=== PATIENT | male | born 1965 | race Caucasian/White ===

== ENCOUNTER → 2022-12-07 | Outpatient (CLI) | payer MEDICAID ==
[2022-12-07 14:45] LABS: Basophils # (A) 0.04 X 10*3/uL (0.00-0.10); Basophils % (A) 0.8 %; Eosinophils # (A) 0.06 X 10*3/uL (0.04-0.35); Eosinophils % (A) 1.2 %; HGB 16.4 g/dL (13.0-17.0); Lymphocytes # (A) 1.14 X 10*3/uL (0.90-5.00); Lymphocytes % (A) 22.8 %; MCH 28.9 pg (27.0-32.0); MCHC 32.2 g/dL (32.0-37.0); MCV 89.8 fL (80.0-97.0); Mean Platelet Volume 10.3 fL (9.5-12.2); Monocytes # (A) 0.49 X 10*3/uL (0.20-1.00); Monocytes % (A) 9.8 %; NRBC Per 100 WBC 0 /100 WBCS (0.0-0.0); Neutrophils # (A) 3.21 X 10*3/uL (1.80-7.70); Neutrophils % (A) 64.4 %; Platelet Count 182 X 10*3/uL (140-440); RBC 5.68 X 10*6/uL (4.40-5.60); RDW 12.8 % (11.5-14.5); WBC 4.99 X 10*3/uL (4.50-10.00)
[2022-12-07 15:38] LABS: ALT 37 U/L (10-49); AST 32 U/L (14-35); African American GFR (CKD) 121.8 (60.0-200.0); Albumin 4.3 g/dL (3.8-4.9); Albumin/Globulin Ratio 1.68 (1.60-3.17); Alkaline Phosphatase 117 U/L (41-126); BUN/Creat Ratio 15.95 Ratio (12.00-20.00); Blood Urea Nitrogen 10.7 mg/dL (9.0-27.0); Carbon Dioxide 23.8 mmol/L (20.0-27.5); Chloride 105 mmol/L (96-109); Chol/HDL Ratio 2.14 Ratio; Globulin 2.5 g/dL (1.6-3.3); Glucose 135 mg/dL (70-110); LDL Cholesterol,Calculated 37.4 mg/dL (0.0-131.0); Non-African American GFR(CKD) 105.1 (60.0-200.0); Sodium 142 mmol/L (135-145); Total Protein 6.8 g/dL (6.2-8.2); VLDL Calculation 14.94 mg/dL (5.00-40.00)
== END | disposition home or self-care (01) ==
LOC: LABWHC1 08:44
PROVIDERS: ATTEND Family Medicine
DX: I10 Essential (primary) hypertension (principal); E11.65 Type 2 diabetes mellitus with hyperglycemia; K21.9 Gastro-esophageal reflux disease without esophagitis; E78.5 Hyperlipidemia, unspecified
CPT/HCPCS: 36415; 80053; 80061; 82607; 83036; 83735; 85025

== ENCOUNTER → 2023-11-11 | Outpatient (CLI) | payer MEDICAID ==
[2023-11-11 13:11] LABS: HCT 53.3 % (39.6-50.0); HGB 17.4 g/dL (13.0-17.0); MCH 28.9 pg (27.0-32.0); MCHC 32.6 g/dL (32.0-37.0); MCV 88.5 FL (80.0-97.0); NRBC Per 100 WBC 0 X 10*3/uL (0.00-0.01); Platelet Count 209 X 10*3/uL (140-440); RBC 6.02 X 10*6/uL (4.40-5.60); RDW 12.7 % (11.5-14.5); WBC 4.73 X 10*3/uL (4.50-10.00)
[2023-11-11 13:46] LABS: ALT 30 U/L (10-49); AST 30 U/L (14-35); Albumin 4.6 g/dL (3.8-4.9); Albumin/Globulin Ratio 1.77 Ratio (1.60-3.17); Alkaline Phosphatase 138 U/L (41-126); BUN/Creat Ratio 13.75 Ratio (12.00-20.00); Calcium 9.7 mg/dL (8.7-10.3); Carbon Dioxide 23.7 mmol/L (21.6-31.8); Chloride 104 mmol/L (96-109); Chol/HDL Ratio 3.54 Ratio; Globulin 2.6 g/dL (1.6-3.3); Glucose 223 mg/dL (70-110); LDL Cholesterol,Calculated 102.8 mg/dL (0.0-131.0); Magnesium 2.2 mg/dL (1.5-2.4); PSA Annual Screen 0.908 ng/mL (0.000-4.000); Potassium 4.5 mmol/L (3.5-5.5); Sodium 142 mmol/L (135-145); Total Bilirubin 0.7 mg/dL (0.3-1.2); Total Protein 7.2 g/dL (6.2-8.2)
== END | disposition home or self-care (01) ==
LOC: LABWHC1 08:03
PROVIDERS: ATTEND Family Medicine
DX: Z00.00 Encounter for general adult medical examination without abnormal findings (principal); Z12.5 Encounter for screening for malignant neoplasm of prostate; E11.65 Type 2 diabetes mellitus with hyperglycemia; K21.00 Gastro-esophageal reflux disease with esophagitis, without bleeding
CPT/HCPCS: 80061; 80053; 82607; 83735; 85027; 83036; 36415; G0103

== ENCOUNTER → 2024-01-13 | Outpatient (CLI) | payer MEDICAID ==
[2024-01-13 12:55] LABS: % Iron Saturation 29.3 (15.00-50.00)
== END | disposition home or self-care (01) ==
LOC: LABWHC1 07:19
PROVIDERS: ATTEND Psychiatry & Neurology Neurology
DX: R25.1 Tremor, unspecified (principal)
CPT/HCPCS: 36415; 82525; 82728; 83540; 83550; 84466

== ENCOUNTER 2024-07-30 05:09 | Inpatient (IN) | payer OTHER, MEDICAID ==
[2024-07-30 05:14] VITALS: TEMP 98.6
[2024-07-30] MEDS: NITROGLYCERIN SL TABS 0.4 MG TAB SUBLINGUAL STA (05:34)
[2024-07-30] MEDS: MORPHINE SULFATE 4 MG/ML SYRINGE IV STA (05:35)
[2024-07-30 05:37] LABS: Basophils % (A) 1 %; Eosinophils # (A) 0.2 k/uL (0-0.7); Eosinophils % (A) 2 %; HCT 35.8 % (39.0-53.0); HGB 11.7 gm/dL (13.0-17.5); Lymphocytes # (A) 0.9 k/uL (1.0-4.8); Lymphocytes % (A) 12 %; MCH 29.7 pg (25.0-35.0); MCHC 32.7 g/dL (31.0-37.0); MCV 90.9 fL (80.0-100.0); Mean Platelet Volume 7.8; Monocytes # (A) 0.6 k/uL (0-1.0); Monocytes % (A) 8 %; Neutrophils # (A) 5.6 k/uL (1.3-7.7); Neutrophils % (A) 75 %; Platelet Count 175 k/uL (150-450); RBC 3.93 m/uL (4.30-5.90); RDW 13.1 % (11.5-15.5); WBC 7.4 k/uL (3.8-10.6)
[2024-07-30] MEDS: SODIUM CHLORIDE 0.9% 500 ML 500 ML IV STA (05:37)
--- NOTE | 2024-07-30 05:40 | ED ---
General Adult HPI - General Chief complaint: Chest Pain Stated complaint: Possible STEMI Time Seen by Provider: 07/30/24 05:16 Source: patient, EMS Mode of arrival: EMS Limitations: no limitations - History of Present Illness Initial comments: Patient is a 59-year-old gentleman the past medical history of CAD status post CABG earlier this week, last Monday, at [facility]. Discharged yesterday. Pt states that at 4 AM this morning he began experiencing right sided chest pressure. He denies associated shortness of breath, diaphoresis, nausea or vomiting. Received ASA and SL nitro from EMS with slight improvement in pain. - Related Data Allergies Allergy/AdvReac Type Severity Reaction Status Date / Time No Known Allergies Allergy Verified 07/30/24 05:14 Review of Systems ROS Statement: Those systems with pertinent positive or pertinent negative responses have been documented in the HPI. ROS Other: All systems not noted in ROS Statement are negative. Past Medical History Additional Past Medical History / Comment(s): Quad CABG 2024 History of Any Multi-Drug Resistant Organisms: None Reported Past Psychological History: No Psychological Hx Reported Smoking Status: Former smoker Past Alcohol Use History: Rare Past Drug Use History: None Reported General Exam - General Exam Comments Initial Comments: PE: CONSTITUTIONAL: No apparent distress, ill-appearing SKIN: Cool dry, no jaundice, hives or petechiae. Well-healing postsurgical scar across the sternum without discharge or exudates EYES: Pupils are equally round, extraocular movements intact without nystagmus, clear conjunctiva, non-icteric sclera HENT: Normocephalic, atraumatic, moist mucus membranes, oropharynx clear without exudates NECK: , Full range of motion, normal appearance PULMONARY: Scant wheezes in the bilateral lower lung stevenson, no rhonchi or rales no design center consultant muscle use normal excursion, no stridor CARDIOVASCULAR: Regular rate, rhythm, normal S1 and S2. No appreciated murmurs, rubs or gallops. Strong radial pulses with intact distal perfusion. No lower extremity edema GASTROINTESTINAL: Soft, active bowel sounds throughout, non-tender, non- distended, no palpable masses, no rebound or guarding. No hepatosplenomegaly MUSCULOSKELETAL: Extremities have no gross deformity, no edema, redness, or swelling. No calf swelling NEUROLOGIC:_a/o x 3, GCS 15, normal mentation and speech. Moves all extremities x 4 without motor or sensory deficit PSYCHIATRIC:_normal mood and affect, thought process is clear and linear Limitations: no limitations Course Vital Signs 07/30/24 07/30/24 07/30/24 05:09 05:17 05:47 Temperature 98.6 F Pulse Rate 96 91 86 Respiratory 18 18 16 Rate Blood Pressure 112/67 125/69 125/72 O2 Sat by Pulse 92 L 94 L 99 Oximetry 07/30/24 07/30/24 06:08 06:30 Temperature Pulse Rate 87 82 Respiratory 16 18 Rate Blood Pressure 124/70 O2 Sat by Pulse 100 100 Oximetry - Reevaluation(s) Reevaluation #1: Patient endorsed return of pain. Repeat EKG showed new ST elevations lead III and aVF, ST depressions in leads V1, II and III have since resolved, there is new ST depression about 1 mm in lead I 07/30/24 06:09 Reevaluation #2: Case discussed with Dr. White, STEMI alert, solder making laborer has been activated 07/30/24 06:18 EKG Findings - EKG Comments: EKG Findings:: EKG #1, sinus rhythm rate 94 bpm DC interval 260 ms QRS duration 129 ms QT/QTc 370/422 ms, normal axis, artifact is present throughout limiting interpretation however there is ST depression in leads V1 2 mm depression V2, 1 mm depression V3, no reciprocal elevations or reciprocal changes. Repeat EKG performed to assess for dynamic changes, repeat EKG shows changes from original EKG, no worsening ST depressions, no new ST elevations 1.[address] depression V2, questionable 1 mm depression V3, no reciprocal changes no STEMI. Repeat EKG done at 534, no new ST elevations, appears improved from initial EKG, [address] depression V2, questionable half millimeter [address] depression V3, no reciprocal elevations or reciprocal changes no STEMI. EKG #4, performed at 6:06 AM, sinus rhythm with first-degree AV block, rate 86 bpm DC interval 211 ms QT/QTc 395/438 ms, normal axis, ST elevation 2 mm lead III, [address] elevation in aVF, ST depressions in V1 through V3 have since resolved, questionable [address] depression in lead I, STEMI Medical Decision Making - Medical Decision Making Was pt. sent in by a medical professional or institution (, PA, GUNNER'S MATE G, urgent care, hospital, or prison...) When possible be specific @ -[No] Did you speak to anyone other than the patient for history (EMS, parent, family, police, friend...)? What history was obtained from this source @ -[No] Did you review nursing and triage notes (agree or disagree)? Why? @ -[I reviewed nursing and triage notes] Were old charts reviewed (outside hosp., previous admission, EMS record, old EKG, old radiological studies, urgent care reports/EKG's, prison records)? Report findings @ -[Medical records reviewed], I reviewed discharge summary provided by patient's , and medical records visible on her phone, shows that patient was treated for an NSTEMI with CABG, discharged yesterday Differential Diagnosis (chest pain, altered mental status, abdominal pain women, abdominal pain men, vaginal bleeding, weakness, fever, dyspnea, syncope, headache, dizziness, GI bleed, back pain, seizure, CVA, palpatations, mental health, musculoskeletal)? @Differential Chest Pain: Stable Angina, Unstable Angina, STEMI, NSTEMI pericarditis, pleurisy, chostochondirits, Pneumothorax, Musculoskeletal, Esophageal Spasm GERD, Cholecystitis, Pancreatitis, Zoster, this is not meant to be an all-inclusive list. EKG interpreted by me (3pts min.). @ -[As above] X-rays interpreted by me (1pt min.). @ -Cardiomegaly, bilateral pulmonary edema, small left pleural effusion CT interpreted by me (1pt min.). @ -[None done] U/S interpreted by me (1pt. min.). @ -[None done] What testing was considered but not performed or refused? (CT, X-rays, U/S, labs)? Why? @ -[None] What meds were considered but not given or refused? Why? @ -[None] Did you discuss the management of the patient with other professionals (pr ofessionals i.e. , PA, GUNNER'[employer] MATE G, lab, RT, psych nurse, director social, medical front desk coordinator, teacher, licensed mortgage loan officer, immigration case worker)? Give summary @Case discussed with Dr. White, cardiology, due to STEMI on EKG, solder making laborer activated, pt to go for cardiac cath Was smoking cessation discussed for >3mins.? @ -[No] Was critical care preformed (if so, how long)? @Yes, 35 minutes spent gathering hx from pt, , ordering and interpreting labs and imaging, frequent reassessments, discussion with consultants Were there social determinants of health that impacted care today? How? (Homelessness, low income, unemployed, alcoholism, drug addiction, transportation, low edu. Level, literacy, decrease access to med. care, detention, rehab)? @ -[No] Was there de-escalation of care discussed even if they declined (Discuss DNR or withdrawal of care, Hospice)? @ -[No] What co-morbidities impacted this encounter? (DM, HTN, Smoking, COPD, CAD, Cancer, CVA, ARF, Chemo, Hep., AIDS, mental health diagnosis, sleep apnea, morbid obesity)? @ CAD Was patient admitted / discharged? Hospital course, mention meds given and route, prescriptions, significant lab abnormalities, going to OR and other pertinent info. @ Admission to [facility], ICU- Pt is a 59 y/o gentleman hx recent CABG done at [facility], discharged yesterday, presenting today for right sided 5/10 chest pain. On my assessment pt is ill appearing but in NAD, at bedside. Reviewed initial EKG, showed some ST depressions but no elevations. Morphine, additional SL nitro, cardiac labs and CXR ordered. Serial EKGs performed x3 without findings consistent with STEMI. Discussed this with pt and and anticipated admission for further monitoring and testing and pt's requested pt be transferred to [facility] for further care so that pt could be n ear his CT surgeon and electrical sign servicer. [facility] was contacted by Conditioning Coach and was told that pt would likely be waiting in our ED for "days" waiting on a bed to become available. I discussed this w/ pts who requested Dr. Willis or Dr. Barillas be contacted. We reached out to [facility] and I had an extensive conversation with the main transfer center that I would like to consult whomever was carbon coater machine operator for Dr. Willis and was transferred to the creping machine operator who said they would call me back after attempting to page that team. While I was on the phone again with [facility] transfer center, as I was being informed once again that pt would likely not have a bed available for him for a number of days and I tried to explain that I was trying to contact the patient's specialists, patient began havingreturn of chest pain. Repeat EKG showed new ST elevations in lead III and aVF and 1 mm depression lead I, STEMI alert was activated. I discussed this with pt and and that, due to difficulty getting through to pt's specialists and having no accepting physician for pt at [facility] and now concern for active STEMI warrantnig emergent transfer to solder making laborer, I would not recommend awaiting to attempt transfer to [facility], as it could lead to a significant delay in reperfusion therapy for the pt. Pt and understanding of this. Case discussed with Dr. White who will meet pt in solder making laborer. Pt transferred to solder making laborer in guarded condition. Of note, Radha RN, was able to get in touch with Dr. Hewitt, cardiology at [facility] after pt was transferred to brine room laborer. He is familiar with patient and will reach out to Dr. White regarding plans for pt post cardiac cath. Admission orders placed for ICU for pt post cardiac cath. Undiagnosed new problem with uncertain prognosis? @ -[No] Drug Therapy requiring intensive monitoring for toxicity (Heparin, Nitro, Insulin, Cardizem)? @ -[No] Were any procedures done? @ -[No] Diagnosis/symptom? STEMI Acute, or Chronic, or Acute on Chronic? @Acute Uncomplicated (without systemic symptoms) or Complicated (systemic symptoms)? @complicated Side effects of treatment? @ -[No] Exacerbation, Progression, or Severe Exacerbation? @ -[No] Poses a threat to life or bodily function? How? (Chest pain, [place], [place], pneumonia, PE, COPD, DKA, ARF, appy, cholecystitis, CVA, Diverticulitis, Homicidal, Suicidal, threat to staff... and all critical care pts) @ Yes, could lead to cardiac arrest and - Lab Data Result diagrams: 07/30/24 05:38 07/30/24 05:38 Lab Results 07/30/24 07/30/24 07/30/24 Range/Units 05:38 05:38 05:38 WBC 7.4 (3.8-10.6) k/uL RBC 3.93 L (4.30-5.90) m/uL Hgb 11.7 L (13.0-17.5) gm/dL Hct 35.8 L (39.0-53.0) % MCV 90.9 (80.0-100.0) fL MCH 29.7 (25.0-35.0) pg MCHC 32.7 (31.0-37.0) g/dL RDW 13.1 (11.5-15.5) % Plt Count 175 (150-450) k/uL MPV 7.8 Neutrophils % 75 % Lymphocytes % 12 % Monocytes % 8 % Eosinophils % 2 % Basophils % 1 % Neutrophils # 5.6 (1.3-7.7) k/uL Lymphocytes # 0.9 L (1.0-4.8) k/uL Monocytes # 0.6 (0-1.0) k/uL Eosinophils # 0.2 (0-0.7) k/uL Basophils # 0.0 (0-0.2) k/uL PT 11.6 (10.0-12.5) sec INR 1.1 (<1.2) APTT 23.4 (22.0-30.0) sec Sodium 132 L (137-145) mmol/L Potassium 4.6 (3.5-5.1) mmol/L Chloride 96 L (98-107) mmol/L Carbon Dioxide 28 (22-30) mmol/L Anion Gap 8 mmol/L BUN 14 (9-20) mg/dL Creatinine 0.67 (0.66-1.25) mg/dL Est GFR (CKD-EPI)AfAm >90 (>60 ml/min/1.73 sqM) Est GFR (CKD-EPI)NonAf >90 (>60 ml/min/1.73 sqM) Glucose 249 H (74-99) mg/dL Calcium 8.6 (8.4-10.2) mg/dL Magnesium 2.0 (1.6-2.3) mg/dL Total Bilirubin 1.3 (0.2-1.3) mg/dL AST 37 (17-59) U/L ALT 22 (4-49) U/L Alkaline Phosphatase 113 (38-126) U/L Troponin I (0.000-0.034) ng/mL NT-Pro-B Natriuret Pep 663 pg/mL Total Protein 6.2 L (6.3-8.2) g/dL Albumin 3.1 L (3.5-5.0) g/dL Lipase 164 (23-300) U/L 07/30/24 Range/Units 05:38 WBC (3.8-10.6) k/uL RBC (4.30-5.90) m/uL Hgb (13.0-17.5) gm/dL Hct (39.0-53.0) % MCV (80.0-100.0) fL MCH (25.0-35.0) pg MCHC (31.0-37.0) g/dL RDW (11.5-15.5) % Plt Count (150-450) k/uL MPV Neutrophils % % Lymphocytes % % Monocytes % % Eosinophils % % Basophils % % Neutrophils # (1.3-7.7) k/uL Lymphocytes # (1.0-4.8) k/uL Monocytes # (0-1.0) k/uL Eosinophils # (0-0.7) k/uL Basophils # (0-0.2) k/uL PT (10.0-12.5) sec INR (<1.2) APTT (22.0-30.0) sec Sodium (137-145) mmol/L Potassium (3.5-5.1) mmol/L Chloride (98-107) mmol/L Carbon Dioxide (22-30) mmol/L Anion Gap mmol/L BUN (9-20) mg/dL Creatinine (0.66-1.25) mg/dL Est GFR (CKD-EPI)AfAm (>60 ml/min/1.73 sqM) Est GFR (CKD-EPI)NonAf (>60 ml/min/1.73 sqM) Glucose (74-99) mg/dL Calcium (8.4-10.2) mg/dL Magnesium (1.6-2.3) mg/dL Total Bilirubin (0.2-1.3) mg/dL AST (17-59) U/L ALT (4-49) U/L Alkaline Phosphatase (38-126) U/L Troponin I 0.631 H* (0.000-0.034) ng/mL NT-Pro-B Natriuret Pep pg/mL Total Protein (6.3-8.2) g/dL Albumin (3.5-5.0) g/dL Lipase (23-300) U/L Disposition Clinical Impression: ST elevation myocardial infarction (STEMI) Disposition: ADMITTED IP TO THIS HOSP Condition: Stable
[2024-07-30] MEDS: ONDANSETRON 4 MG/2 ML VIAL IVP STA ×2 (05:41→06:22)
--- NOTE | 2024-07-30 05:58 | XR ---
EXAM: XR Chest, 1 View CLINICAL HISTORY: R. Chest pain, recent CABG TECHNIQUE: Frontal view of the chest. COMPARISON: No relevant prior studies available. FINDINGS: Lungs: Moderate amount of airspace opacities throughout both lungs. Pleural space: Cannot rule out small left pleural effusion.. Heart: Cardiomegaly. Mediastinum: Sternal wires and mediastinal clips. Bones/joints: No acute findings IMPRESSION: Moderate pulmonary edema versus pneumonia
[2024-07-30 06:01] LABS: INR 1.1 (<1.2); Partial Thromboplastin Time 23.4 sec (22.0-30.0); Prothrombin Time 11.6 sec (10.0-12.5)
[2024-07-30 06:09] VITALS: BP 124/70
[2024-07-30] MEDS: HEPARIN SOD,PORK IN 0.45% NACL 25,000 UNIT in 0.45% NACL 1 250ML.BAG IV SCH (06:17)
[2024-07-30] MEDS: HEPARIN SODIUM 1,000 UN/ML (10ML VL) IV ONE (06:18)
[2024-07-30] MEDS: NITROGLYCERIN OINT 1 INCH/GM PACKET TOPICAL STA (06:19)
[2024-07-30] MEDS: MORPHINE SULFATE 4 MG/ML SYRINGE IVP STA (06:19)
[2024-07-30 06:23] LABS: ALT 22 U/L (4-49); African American GFR (CKD) >90 (>60 ml/min/1.73 sqM); Albumin 3.1 g/dL (3.5-5.0); Anion Gap 8 mmol/L; Blood Urea Nitrogen 14 mg/dL (9-20); Calcium 8.6 mg/dL (8.4-10.2); Carbon Dioxide 28 mmol/L (22-30); Chloride 96 mmol/L (98-107); Glucose 249 mg/dL (74-99); Lipase 164 U/L (23-300); Non-African American GFR(CKD) >90 (>60 ml/min/1.73 sqM); Sodium 132 mmol/L (137-145); Total Bilirubin 1.3 mg/dL (0.2-1.3); Total Protein 6.2 g/dL (6.3-8.2)
[2024-07-30 06:28] LABS: AST 37 U/L (17-59); Alkaline Phosphatase 113 U/L (38-126); Potassium 4.6 mmol/L (3.5-5.1)
[2024-07-30 06:31] LABS: NT-Pro-B-Type Natriuretic Pept 663 pg/mL
[2024-07-30] MEDS ORDERED: NALOXONE 0.4 MG/ML 1 ML VIAL IV PRN (06:37)
[2024-07-30] MEDS: LIDOCAINE 1% INJ 10MG/ML (20 ML MDV) SQ ONE (06:50)
[2024-07-30 06:53] VITALS: PULSE 82; RESP 18
[2024-07-30] MEDS: MIDAZOLAM 2 MG/2 ML VIAL IVP ONE (07:00)
[2024-07-30] MEDS: MORPHINE SULFATE 4 MG/ML SYRINGE IVP ONE (07:00)
[2024-07-30] MEDS: PHENYLEPHRINE 10 MG/ML VIAL IV ONE (07:03)
[2024-07-30] MEDS: FUROSEMIDE 10 MG/ML 4 ML VIAL IV ONE (07:12)
[2024-07-30] MEDS: SODIUM CHLORIDE 0.9% 1,000 ML IV ONE (07:58)
[2024-07-30] MEDS: HEPARIN SODIUM,PORCINE 10,000 UNIT in SODIUM CHLORIDE 0.9% 1,000 ML IRRIGATION ONE (07:58)
[2024-07-30] MEDS: HEPARIN SODIUM,PORCINE (1 ML) 2,500 UNIT in SODIUM CHLORIDE 0.9% 250 ML IRRIGATION ONE (07:59)
[2024-07-30] MEDS ORDERED: SODIUM CHLORIDE 0.9% 250 ML BAG ONE (08:00)
[2024-07-30] MEDS ORDERED: NOREPINEPHRINE 1 MG/ML 4 ML VIAL IV ONE (08:00)
[2024-07-30] MEDS ORDERED: EPINEPHrine 4 MG in DEXTROSE 5% IN WATER 250 ML IV SCH (08:30)
[2024-07-30] MEDS ORDERED: DEXTROSE 5% IN WATER 1,000 ML with SODIUM BICARB (1 MEQ/ML) 150 ML IV SCH (08:30)
[2024-07-30] MEDS: IOPAMIDOL-370 100ML BTL INJ ONE (08:40)
[2024-07-30 09:32] LABS: ABG PCO2 33 mmHg (35-45); ABG PH 7.38 (7.35-7.45); ABG PO2 54 mmHg (83-108); Allen Test Performed? no
[2024-07-30 09:33] LABS: ABG Base Excess -5.2 mmol/L; ABG HCO3 19 mmol/L (21-25)
--- NOTE | 2024-07-30 09:34 | P.PCN ---
Date of Procedure: 07/30/24 Operative Findings: Cardiac catheterization and percutaneous coronary intervention Performing physician Phi Soriano MD Procedure performed Selective right and left coronary angiogram FRYE to LAD angiogram and SVG to diagonal angiogram and SVG to OM angiogram and SVG to RCA angiogram Left heart catheterization and right heart catheterization Successful placement of Impella CP in the left ventricle Successful placement of temporary pacemaker in the right ventricle An angioplasty of the mid right coronary artery Selective right common femoral artery angiogram and ultrasound-guided access of the right common femoral artery Indication This is a 59-year-old gentleman with known severe triple-vessel CAD who underwent CABG last week at [facility]. He was discharged according to the family in stable medical condition. He presented to the emergency department with recent onset of chest discomfort. His EKG showed ST changes concerning for ischemia. In the light of ongoing chest discomfort and abnormal EKG and underlying history the decision was made toward an emergent heart catheterization Approach Right common femoral artery and right common femoral vein Complication None Level of sedation The procedure length was 85 minutes Procedure description After obtaining informed consent the patient was brought to the cardiac Plumber Cub. The right common femoral artery was cannulated using micropuncture technique under ultrasound guidance a micropuncture wire passed easily then I pl aced a 6 [place] 11 cm sheath at the right common femoral artery and subsequently the sheath was secured to the skin and subsequently it was flushed. We did selective left and right coronary angiogram using JL 4 and JR4 catheters. The FRYE to LAD angiogram and SVG to diagonal angiogram and SVG to OM angiogram performed using the JR4 catheter. The SVG to RCA angiogram was performed using multipurpose catheter. We did left heart catheterization using a 6 [place] pigtail catheter. After that and in the light of low blood pressure consistent with cardiogenic shock in spite of the patient being on vasopressors using norepinephrine and elevated left-sided filling pressure with elevated LVEDP exceeding 30 mmHg and with the patient going into pulmonary edema, I decided to place an Impella CP in the LV. At that point I did selective right common femoral artery angiogram to assure that the femoral artery diameter can accommodate 14 [place] sheath. At that point I decided to move forward with the Impella. Two Perclose devices were placed and subsequently I did exchange my 11 cm 6 [place] sheath into 11 cm 8 [place] sheath. After that I did exchange the 8 [place] 11 cm sheath into the 14 [place] 23 cm sheath using a 3 5 stiff wire. After that the sheath was flushed. Anticoagulation was initiated using heparin with continuous ACT monitoring. Before we did place the Impella in the left ventricle and because I was concerned about thrombus in the left ventricle I did an emergent/stat echocardiogram at bedside and that showed an EF around 30% with dilated left ventricle but no evidence of LV thrombus was seen. And at that point I decided to move forward using the Impella CP. At that point I did across the aortic valve using a 6 [place] pigtail catheter. Subsequently I did place an 018 wire which was the Impella wire inside the pigtail and pigtail was pulled out and subsequently the Impella was advanced to the left ventricle and subsequently it was turned on. Then I did right heart catheterization using 6 [place] Kenedy catheter. Because the patient was bradycardic somewhat to during the procedure with heart rate in the 50s and sometimes in the 40s I placed a temporary pacemaker wire after the right heart catheterization was performed. After the heart catheterization was performed and realizing that the transpulmonary gradient was almost 0 we decided to move forward by putting an RV Impella but unfortunately the controller was not available and for that reason the RV Impella was not placed. After that the patient unfortunately went into storm of VT/V-fib where he received multiple shocks and subsequently he was given amiodarone IV and lidocaine IV and also he was given magnesium and bicarb. After that he was back in sinus rhythm with AV block but we have a temporary pacemaker was working. His pressure has been in the 30s and 40s and for that reason CPR was initiated. During that time or just before that time I did engage the RCA using JR4 guiding catheter and I did advance an an 014 whisper wire. I did balloon angioplasty of the RCA but unfortunately CPR continued till the family requested no more CPR on the patient and at that point we stopped. Selective coronary angiogram The left main appears to have mild disease only. Bifurcates into an LCx and LAD The LCx apparently is a large-caliber vessel and known if is dominant and nondominant because it was occluded in the very proximal portion The LAD proximally appeared to have mild to moderate diffuse disease and gives rise into the first and second diagonal branches both have tight ostial lesions. The mid LAD has a tight lesion but I was able to see competitive flow from the FRYE The RCA is a medium caliber vessel appears to have a tight lesion in the midportion but distally bifurcates into an occluded PDA and small PLV branch Coronary bypasses angiogram The FRYE to LAD is patent with sluggish flow could be secondary to low blood pressure The SVG to diagonal is occluded The SVG to OM is occluded The SVG to RCA apparently occluded also in the midportion with no outflow Hemodynamics The pulmonary capillary wedge pressure was 28 mmHg The pulmonary artery systolic pressure well as follow systolic of 48 and diastolic of 25 and mean of 28 mmHg The RV pressures were as follows systolic of 53 and end-diastolic of 30 mmHg The right atrial pressure was 24 mmHg Cardiac output was 2.91 L/min with a cardiac index of 1.34 L/min/m Conclusion Severe [place] triple-vessel coronary artery disease as described above Patent FRYE to LAD with the occlusion of graft to the diagonal and graft to the OM and the graft to the RCA Elevated biventricular filling pressures Cardiomyopathy and cardiogenic shock Multiple episodes of V-fib/V. tach with subsequent AV block The family requested stopping CPR and all measures and that was done
--- NOTE | 2024-07-30 09:48 | CA ---
Transthoracic Echo Report Name: Javier Curtis Age: 59 Gender: M : 1965 Exam Date: 07/30/2024 07:08 Exam Location: [place] [facility] Ht (in): 70 Wt (lb): 220 Ordering Physician: Sanya White MD ([id number]) Attending/Referring Phys: Board Stacker Beba Maki RDCS Procedure CPT: Indications: r/o pericardial effusion Cardiac Hx: STAT limited study in drop crew laborer Technical Quality: Technically difficult study Contrast 1: Total Dose (mL): Contrast 2: Total Dose (mL): MEASUREMENTS (Male / Female) Normal Values FINDINGS Left Ventricle Left ventricular ejection fraction is estimated at 20-25 %. Right Ventricle Right Atrium Left Atrium Mitral Valve Aortic Valve Tricuspid Valve Pulmonic Valve Pericardium Minimal pericardial effusion Aorta CONCLUSIONS Left ventricular ejection fraction is estimated at 20-25 %. Minimal pericardial effusion with no tamponade physiology Previewed by: Dr. Logan العراقي DO (Electronically Signed) Final Date: 30 July 2024 09:47
== END 2024-07-30 11:09 | disposition expired | DRG 215 ==
LOC: SUPCPDRO 05:09 → EC 05:09 → 2SICU 06:40
PROVIDERS: ADMIT Internal Medicine; ATTEND Internal Medicine
PROC: B2181ZZ Fluoroscopy of Left Internal Mammary Bypass Graft using Low Osmolar Contrast (ICD-10-PCS; 2024-07-30)
PROC: B41F1ZZ Fluoroscopy of Right Lower Extremity Arteries using Low Osmolar Contrast (ICD-10-PCS; 2024-07-30)
PROC: 4A023N8 Measurement of Cardiac Sampling and Pressure, Bilateral, Percutaneous Approach (ICD-10-PCS; 2024-07-30)
PROC: B2131ZZ Fluoroscopy of Multiple Coronary Artery Bypass Grafts using Low Osmolar Contrast (ICD-10-PCS; 2024-07-30)
PROC: B2151ZZ Fluoroscopy of Left Heart using Low Osmolar Contrast (ICD-10-PCS; 2024-07-30)
PROC: 5A1223Z Performance of Cardiac Pacing, Continuous (ICD-10-PCS; 2024-07-30)
PROC: 02HA3RZ Insertion of Short-term External Heart Assist System into Heart, Percutaneous Approach (ICD-10-PCS; 2024-07-30)
PROC: 5A0221D Assistance with Cardiac Output using Impeller Pump, Continuous (ICD-10-PCS; principal; 2024-07-30 06:31)
PROC: 5A12012 Performance of Cardiac Output, Single, Manual (ICD-10-PCS; 2024-07-30 06:31)
PROC: 4A023N8 Measurement of Cardiac Sampling and Pressure, Bilateral, Percutaneous Approach (ICD-10-PCS; 2024-07-30 06:31)
PROC: 02703ZZ Dilation of Coronary Artery, One Artery, Percutaneous Approach (ICD-10-PCS; 2024-07-30 06:31)
PROC: 5A1223Z Performance of Cardiac Pacing, Continuous (ICD-10-PCS; 2024-07-30 06:31)
PROC: B2111ZZ Fluoroscopy of Multiple Coronary Arteries using Low Osmolar Contrast (ICD-10-PCS; 2024-07-30 06:31)
DX: T82.867A Thrombosis due to cardiac prosthetic devices, implants and grafts, initial encounter (principal); I21.3 ST elevation (STEMI) myocardial infarction of unspecified site; R57.0 Cardiogenic shock; I49.01 Ventricular fibrillation; I25.810 Atherosclerosis of coronary artery bypass graft(s) without angina pectoris; I47.20 Ventricular tachycardia, unspecified; I42.9 Cardiomyopathy, unspecified; J81.1 Chronic pulmonary edema; R00.1 Bradycardia, unspecified; Z87.891 Personal history of nicotine dependence
CPT/HCPCS: 33210; 33990; 36415; 71045; 80053; 82805; 83690; 83735; 83880; 84484; 85025; 85610; 85730; 92920; 92950; 93005; 93308; 93461; 94002; 96361; 96374; 96375; 96376; 99291